=== PATIENT | female | born 1970 | race Caucasian/White ===

== ENCOUNTER 2016-07-07 22:36 | Emergency (ER) | payer OTHER ==
[~2016-07-07] VITALS: Ht 157.5 cm; Wt 99.9 kg
[2016-07-07] MEDS ORDERED: VALIUM5 MG PO (23:51)
[2016-07-07] MEDS ORDERED: ULTRAM50 MG PO (23:51)
[2016-07-08 00:14] VITALS: BP 134/76
[2016-07-08] MEDS ORDERED: METFORMIN HCL1000 MG PO (09:14)
[2016-07-08] MEDS ORDERED: JARDIANCE25 MG PO (09:15)
[2016-07-08] MEDS ORDERED: VIVELLE-DOT,0.025 MG TD (09:17)
[2016-07-08] MEDS ORDERED: LISINOPRIL10 MG PO (09:17)
[2016-07-08] MEDS ORDERED: GLYBURIDE5 MG PO (09:17)
[2016-07-08] MEDS ORDERED: PERCOCET 10/1 TABLET PO (12:18)
[2016-07-08] MEDS ORDERED: BACLOFEN10 MG PO (12:18)
== END 2016-07-08 00:14 | disposition home or self-care (01) ==
LOC: EME 22:36 → RME 22:36
DX: M54.16 Radiculopathy, lumbar region (principal); E11.9 Type 2 diabetes mellitus without complications; I10 Essential (primary) hypertension
CPT/HCPCS: 99281; 99284

== ENCOUNTER 2016-07-08 08:55 | Emergency (ER) | payer OTHER ==
[~2016-07-08] VITALS: Ht 157.5 cm; Wt 98.2 kg
[~2016-07-08 08:55] MED LIST: ULTRAM50 MG PO; VALIUM5 MG PO
[2016-07-08] MEDS ORDERED: METFORMIN HCL1000 MG PO (09:14)
[2016-07-08] MEDS ORDERED: JARDIANCE25 MG PO (09:15)
[2016-07-08] MEDS ORDERED: VIVELLE-DOT,0.025 MG TD (09:17)
[2016-07-08] MEDS ORDERED: GLYBURIDE5 MG PO (09:17)
[2016-07-08] MEDS ORDERED: LISINOPRIL10 MG PO (09:17)
[2016-07-08 09:57] LABS: ADD MIUA? NO; BILIRUBIN NEGATIVE; BLOOD NEGATIVE; COLOR YELLOW ((YELLOW)); GLUCOSE (STRIP) >=1000; KETONES 40; LEUKOCYTES NEGATIVE; NITRITE NEGATIVE; PH, URINE 6.5 (5-8); PROTEIN (STRIP) NEGATIVE; SPECIFIC GRAVITY 1.041 (1.000-1.030); UCUL ADDED? NO
[2016-07-08 10:18] LABS: EOSINOPHIL (%) 0.2 % (0-5); HEMATOCRIT 41.1 % (36.0-46.0); IMMATURE GRANULOCYTE (%) 0.2 % (0.0-0.7); IMMATURE GRANULOCYTE COUNT 0.1 K/uL; LYMPHOCYTE COUNT 1.1 K/uL (1.0-2.8); MCH 29.2 PG (29.0-34.0); MCHC 36.3 G/DL (30.0-36.0); MCV 80.4 FL (83-99); MEAN PLAT.VOLUME 10.5 uM^3 (9.5-12.4); MONOCYTE (%) 5.1 % (3-12); MONOCYTE COUNT 0.3 K/uL (0-0.8); NEUTROPHIL (%) 76.5 % (45-76); NEUTROPHIL COUNT 4.6 K/uL (1.8-6.4); PLATELET COUNT 86 K/uL (156-360); RBC DIS.WIDTH-CV 14.4 % (11.8-14.6); RBC DIS.WIDTH-SD 41.3 % (39-53); RED BLOOD COUNT 5.11 M/uL (3.80-5.20)
[2016-07-08 10:29] LABS: CHLORIDE 106 mEq/L (99-109); POTASSIUM 3.6 mEq/L (3.7-5.4); SODIUM 137 mEq/L (136-147)
[2016-07-08 10:32] LABS: GLUCOSE 195 mg/dL (70-99)
[2016-07-08 10:33] LABS: ANION GAP 14 MEQ/L (2-14); TOTAL BILIRUBIN 1.3 mg/dL (0.0-1.0)
[2016-07-08 10:35] LABS: ALKALINE PHOSPHATASE 51 IU/L (3-129); GFR ESTIMATE (CALCULATED) > 59 mL/min/
[2016-07-08 10:36] LABS: UREA NITROGEN (BUN) 9 mg/dL (9-23)
[2016-07-08 10:38] LABS: CREATINE KINASE 57 IU/L (1-294)
[2016-07-08 10:46] LABS: ERTH.SED.RATE 22 MM/HR (0-20)
[2016-07-08] MEDS ORDERED: PERCOCET 10/1 TABLET PO (12:18)
[2016-07-08] MEDS ORDERED: BACLOFEN10 MG PO (12:18)
[2016-07-08 13:10] VITALS: BP 120/72
== END 2016-07-08 13:11 | disposition home or self-care (01) ==
LOC: EME 08:55 → EXP 08:55
PROVIDERS: Emergency Medicine
DX: M54.5 Low back pain (principal); I10 Essential (primary) hypertension; E11.9 Type 2 diabetes mellitus without complications; Z79.4 Long term (current) use of insulin
CPT/HCPCS: 72100; 80053; 81003; 82550; 85025; 85651; 99281; 99285; J2270; J2405